=== PATIENT | female | born 1965 | race Caucasian/White ===

== ENCOUNTER 2023-03-02 00:40 | Day surgery (SDC) | payer OTHER, SELFPAY ==
[2023-02-19 12:31] VITALS: BMI 42.5
[2023-03-02 08:04] VITALS: BP 139/78; PULSE 88; RESP 18; TEMP 36.4; O2SAT 100; BMI 40.6
[2023-03-02] MEDS: LACTATED RINGERS 1,000 ML 150 ML IV CONT (08:38)
--- NOTE | 2023-03-02 08:41 | WPDANESEPPF ---
Anes - Initial Pre Proc Eval Procedure: Operation Date: 03/02/23 09:30 Proposed Procedures p Colonoscopy - Reuben Mendoza MD Date/Time: 03/02/23 08:41 Surgeon: Reuben Mendoza MD Pre Op Diagnosis: melena,other fecal abnormalities Patient Data Age: 57 Gender: F Height: 1.57 m Weight: 100.8 kg Last Vital Signs Temp 97.6 F 03/02/23 08:04 Pulse 88 03/02/23 08:04 Resp 18 03/02/23 08:04 BP 139/78 03/02/23 08:04 Pulse Ox 100 03/02/23 08:04 O2 Del Method Room Air 03/02/23 08:04 Allergies Allergy/AdvReac Type Severity Reaction Status Date / Time Penicillins Allergy Unknown Unknown Verified 03/02/23 08:12 Sulfa (Sulfonamide Allergy Unknown Unknown Verified 03/02/23 08:12 Antibiotics) Home Medications Medication Instructions Recorded Confirmed Type lactobacillus combination no.8 3 1 cell PO DAILY 02/19/23 03/02/23 History billion cell capsule Patient hx anesthesia problems: none Family hx anesthesia problems: none Results Review: All pre-operative results and documents have been reviewed as part of the pre-operative evaluation. [facility] Past Medical History Medical History Other pulmonary embolism and infarction Family History Family History Mother Family history of cardiovascular disease Uterine cancer Father Hypertension Depression Alcohol abuse Social History Social History Social History: Caffeine-coffee daily Smoking status: Former smoker Tobacco type: cigarettes Alcohol intake: never Substance use: former Substance use type: marijuana Living arrangements: with family Gender identity (if verbalized by the patient): Female Spiritual care concerns: No Agree to blood products: Yes Anes - Eval Final PreProcedure Day of Procedure 03/02/23 08:41 Patient weight: morbidly obese Heart: regular rate and rhythm Lungs: clear to auscultation Airway: Mallampati scale class III Neurological: alert and oriented Last oral intake: >/= 8 hours ASA classification: III Emergent: no Anesthetic plan: proceed Anesthesia type and monitoring: general GIVS and standard monitoring Results Review: All pre-operative results and documents have been reviewed as part of the pre-operative evaluation. Informed Consent: The patient's anesthetic plan and its attendant risks and benefits were discussed with the patient/family/POA. Questions were solicited and answers provided to the satisfaction of the patient/family/POA.
--- NOTE | 2023-03-02 08:43 | WPDHPUPDATE1 ---
History and Physical Update Update Date/Time: 03/02/23 08:43 History and Physical has been reviewed, including an updated exam of the patient. There are NO changes in the patient's condition. Risks, benefits, and alternatives have been discussed and questions answered. Patient agrees to proceed with procedure.
[2023-03-02 09:09] VITALS: BP 108/61; PULSE 83; RESP 11; O2SAT 96
[2023-03-02 09:19] VITALS: BP 89/50; PULSE 80; RESP 18; O2SAT 98
[2023-03-02 09:29] VITALS: BP 112/70; PULSE 79; RESP 17; O2SAT 98
== END 2023-03-02 09:40 | disposition home or self-care (01) ==
PROVIDERS: PCP Family Medicine; Visit Provider Internal Medicine Gastroenterology
PROC: 0DJD8ZZ Inspection of Lower Intestinal Tract, Via Natural or Artificial Opening Endoscopic (ICD-10-PCS; CPT 45378; principal; 2023-03-02 09:30)
DX: R19.5 Other fecal abnormalities (principal); D12.3 Benign neoplasm of transverse colon; D12.5 Benign neoplasm of sigmoid colon; R11.0 Nausea; E78.5 Hyperlipidemia, unspecified; Z87.891 Personal history of nicotine dependence; E66.9 Obesity, unspecified; Z68.41 Body mass index [BMI] 40.0-44.9, adult
CPT/HCPCS: 45385; 45381; 88305; J2704; J7120